=== PATIENT | male | born 1955 | race Caucasian/White ===

== ENCOUNTER 2017-10-21 11:49 | Emergency (ER) | payer BC ==
[~2017-10-21] VITALS: Ht 195.6 cm; Wt 123.0 kg
[~2017-10-21 11:49] MED LIST: IBUP600T26 PO
[2017-10-21 11:52] VITALS: BP 126/74; PULSE 86; RESP 16; TEMP 98.5; O2SAT 96
--- NOTE | 2017-10-21 12:01 | PD ---
HPI Chief Complaint: Cold / Flu Symptoms Time Seen by Provider: 11:55 Travel History International Travel<30 days: No Contact w/Intl Traveler<30days: No Traveled to known affect area: No History of Present Illness HPI 62-year-old male here for valuation a flulike illness. Patient has bodyaches, fever, cough, sore throat, mild headache 1 day. No sick contacts or foreign travel. Severity is moderate. Slightly relieved with [id number] ibuprofen. PFSH Past Medical History Arthritis: Yes Cancer: Yes (BASAL CELL CARCINOMA REMOVED FROM LEFT LOWER EYELID) Diminished Hearing: No Immunizations Current: No Social History Alcohol Use: Yes (1 BEER EVERY FRIDAY) Tobacco Use: Yes (2 PPD) Substance Use: No Allergies-Medications (Allergen,Severity, Reaction): Coded Allergies: No Known Allergies (Verified Adverse Reaction, Unknown, 10/21/17) Reported Meds & Prescriptions Reported Meds & Active Scripts Active Reported Advil Allergy Sinus (Avdsqhoqywmxlmuu-Jafslenntveqcjq-Ncaijdgnl) 2-30-200 Mg Tab 1 Tab PO Q4H PRN Ibuprofen 200 Mg Cap 200 Mg PO Q4H PRN Review of Systems Except as stated in HPI: all other systems reviewed are Neg General / Constitutional: Positive: Fever Eyes: No: Visual changes HENT: Positive: Congestion, No: Headaches Cardiovascular: No: Chest Pain or Discomfort Respiratory: Positive: Cough Gastrointestinal: No: Abdominal Pain Genitourinary: No: Dysuria Physical Exam Narrative GENERAL: Alert and well-appearing 62-year-old male. SKIN: Warm and dry. No rash HEAD: Normocephalic. EYES:. No injection or drainage. NECK: Supple, trachea midline. No meningismus CARDIOVASCULAR: Regular rate and rhythm without murmurs, gallops, or rubs. RESPIRATORY: Breath sounds equal bilaterally. No accessory muscle use. GASTROINTESTINAL: Abdomen soft, non-tender, nondistended. MUSCULOSKELETAL: No cyanosis, or edema. BACK: Nontender without obvious deformity. No CVA tenderness. Data Data Last Documented VS Vital Signs Date Time Temp Pulse Resp B/P (MAP) Pulse Ox O2 Delivery O2 Flow Rate FiO2 10/21/17 11:52 98.5 86 16 126/74 (91) 96 Orders Orders Influenzae A/B Antigen (10/21/17 11:55) [facility] Medical Decision Making Medical Screen Exam Complete: Yes Emergency Medical Condition: Yes Differential Diagnosis Influenza, bronchitis, pneumonia Narrative Course 62 male here with flulike symptoms. He is nontoxic appearing. Vital signs are stable. Influenza is negative. I still highly suspect this is influenza. Patient will be treated with Tamiflu. Diagnosis Primary Impression: Influenza-like illness Referrals: Primary Care Physician Departure Forms: Tests/Procedures, Work Release Enter return to work date: Oct 25, 2017 Additional Instructions: Medications as prescribed. Stable hydrated. Rest. Return if he developed new or worsening symptoms. Scripts Albuterol 8.5 GM Inh (Proair Hfa 8.5 GM Inh) 90 Mcg/Act Aer 2 PUFF INH Q4-6H Y for SHORTNESS OF BREATH, #1 INHALER 0 Refills 108 mcg/actuation Prov: Ina Carl 10/21/17 Dextromethorphan-Promethazine Liq (Promethazine-Dextromethorphan Liq) 6.25-15 Mg /5 Ml Syrp 10 ML PO Q6HR Y for COUGH, #120 ML Prov: Ina Carl 10/21/17 Prednisone (Prednisone) 20 Mg Tab 40 MG PO DAILY, #10 TAB 0 Refills Take 40 mg (2 tablets) daily for 5 days Prov: Ina Carl 10/21/17 Oseltamivir (Tamiflu) 75 Mg Cap 75 MG PO BID for Mgmt Viral Infection for 5 Days, #10 CAP 0 Refills Prov: Ina Carl 10/21/17 Disposition: 01 DISCHARGE HOME Condition: Stable Ina Carl Oct 21, 2017 12:01
[2017-10-21] MEDS ORDERED: ADVITAB3 PO (12:12)
[2017-10-21] MEDS ORDERED: IBUP200C PO (12:12)
[2017-10-21] MEDS ORDERED: ALBUAER3 INH (12:50)
[2017-10-21] MEDS ORDERED: PROMSYP3 PO (12:50)
[2017-10-21] MEDS ORDERED: OSEL75 PO (12:50)
[2017-10-21] MEDS ORDERED: PRED20 PO (12:50)
== END 2017-10-21 12:58 | disposition home or self-care (01) ==
LOC: PHEFT 11:49
DX: J11.1 Influenza due to unidentified influenza virus with other respiratory manifestations (principal); F17.200 Nicotine dependence, unspecified, uncomplicated
CPT/HCPCS: 87804; 99284